=== PATIENT | female | born 1955 | race African-American/Black ===

== ENCOUNTER → 2021-02-06 | Outpatient (CLI) | payer MEDICARE ==
--- NOTE | 2021-02-06 12:33 | RAD ---
EXAM: BILATERAL DIGITAL SCREENING MAMMOGRAPHY. HISTORY: Routine mammographic screening. TECHNIQUE: Bilateral full field digital images were obtained in CC and MLO projections. Computer-aide d detection was applied. COMPARISON: 11/08/2009, 11/19/2008, 11/25/2007. COMPOSITION: B. There are scattered areas of fibroglandular density. FINDINGS: A postbiopsy clip is noted on the right. Scattered and coarse calcifications bilaterally ar e benign. There are no suspicious masses, microcalcifications or architectural distortion. The parenc hymal pattern is stable. BI-RADS CATEGORY 2: Benign. RECOMMENDATION: 1. Routine screening mammography in one year. If mammography demonstrates dense breast tissue (heterogenously dense or extremely dense, category C or D), which could hide abnormalities, and if other risk factors for breast cancer have been identifi ed, supplemental screening tests that may be suggested by the ordering physician may be of benefit. D ense breast tissue, in and of itself, is a relatively common condition. Therefore, this information i s not provided to cause undue concern, but rather to raise awareness and to promote discussion with t he referring physician regarding the presence of other risk factors, in addition to dense breast tiss ue. The results of this mammography examination is provided to the patient and referring physician. T he patient should contact their referring physician if any questions or concerns exist regarding this report. PQRS compliance statement - Patient information was entered into a reminder system with a target due date for the next mammogram. "Our facility is accredited by the [employer] Mammography [employer]." Electronically signed by: Jerzy Mendoza MD (02/06/2021 12:31 PM) [id number]
== END ==
LOC: MAMMO 08:49
PROVIDERS: ATTEND Family Medicine
DX: Z12.31 Encounter for screening mammogram for malignant neoplasm of breast (principal)
CPT/HCPCS: 77063; 77067